=== PATIENT | male | born 1995 | race African-American/Black ===

== ENCOUNTER 2017-02-02 14:16 | Emergency (ER) | payer OTHER ==
[2017-02-02 15:56] VITALS: BP 108/76
[2017-02-02] MEDS ORDERED: BSS OPTH.SOL* BTL ONE (16:14)
[2017-02-02] MEDS ORDERED: Fluorescein Sodium TOPICAL* 1 MG TEST ONE (16:14)
[2017-02-02] MEDS ORDERED: Tetracaine 0.5% OPTH.SOL 4 ML* 1 DROP BTL ONE (16:14)
--- NOTE | 2017-02-02 16:24 | UC ---
Eye Complaint HPI - HPI Summary HPI Summary: left eye redness and D/C x 1 days irritated and itchy no contact use x 4 days no photophobia - History of Current Complaint Chief Complaint: UCEye Stated Complaint: EYE COMPLAINT Time Seen by Provider: 02/02/17 16:17 Hx Obtained From: Patient Onset/Duration: Gradual Onset, Lasting Days Timing: Constant Severity Initially: Mild Severity Currently: Mild Pain Intensity: 1 Pain Scale Used: 0-10 Numeric Location of Injury: Other - no injury Aggravating Factor(s): Nothing Associated Signs And Symptoms: Positive: Drainage (Purulent) - Risk Factors Penetrating Injury Risk Factor: Negative Globe Rupture Risk Factors: Negative Acute Glaucoma Risk Factors: Negative Optic Artery Occlusion Risk Factors: Negative - Allergies/Home Medications Allergies/Adverse Reactions: Allergies Allergy/AdvReac Type Severity Reaction Status Date / Time No Known Allergies Allergy Verified 02/02/17 15:56 PMH/Surg Hx/FS Hx/Imm Hx Previously Healthy: Yes - Surgical History Surgical History: Yes Surgery Procedure, Year, and Place: b/l jaw, left eye (age 11 Yrs) - Family History Known Family History: Negative: Cardiac Disease, Hypertension, Diabetes - Social History Alcohol Use: Weekly Alcohol Amount: 3-8 Substance Use Type: Marijuana Substance Use Comment - Amount & Last Used: 5 days ago Smoking Status (MU): Never Smoked Tobacco Review of Systems Constitutional: Negative Skin: Negative Eyes: Drainage, Eye Redness ENT: Negative Respiratory: Negative Cardiovascular: Negative Gastrointestinal: Negative Genitourinary: Negative Motor: Negative Neurovascular: Negative Musculoskeletal: Negative Neurological: Negative Psychological: Negative All Other Systems Reviewed And Are Negative: Yes Physical Exam Triage Information Reviewed: Yes Appearance: Well-Appearing, No Pain Distress, Well-Nourished Vital Signs: Initial Vital Signs Temp 99.1 F 02/02/17 15:44 Pulse 75 02/02/17 15:44 Resp 18 02/02/17 15:44 BP 108/76 02/02/17 15:44 Eyes: Positive: Conjunctiva Inflamed, Discharge - left, Other: - (-) fluorescein stain uptake ENT: Positive: Hearing grossly normal. Negative: Nasal congestion, Nasal drainage, Trismus, Muffled/hoarse voice Neck: Positive: Supple, Nontender, No Lymphadenopathy Respiratory: Positive: Lungs clear, Normal breath sounds, No respiratory distress Cardiovascular: Positive: RRR, No Murmur Musculoskeletal: Positive: ROM Intact, No Edema Neurological: Positive: Alert Psychological Exam: Normal Skin Exam: Normal Eye Complaint Course/Dx - Differential Dx/Diagnosis Provider Diagnoses: conjunctivitis left eye Discharge - Discharge Plan Condition: Stable Disposition: HOME Prescriptions: Polymyx/Trimethoprim OPTH* [Polytrim OPHTH*] 1 - 2 drop LEFT EYE QID #1 btl Patient Education Materials: Conjunctivitis (ED) Additional Instructions: no contact lens use for a week recheck in 4 days if not better I suggest you also use ZADiTOR eye drops (OTC)
== END 2017-02-02 16:26 | disposition home or self-care (01) ==
LOC: UCCORT 14:16
DX: H10.32 Unspecified acute conjunctivitis, left eye (principal)
CPT/HCPCS: 99202; A9270-GY; G0463

== ENCOUNTER 2019-07-19 11:46 | Emergency (ER) | payer OTHER ==
[2019-07-19 12:23] VITALS: BP 127/79
--- NOTE | 2019-07-19 13:19 | UC ---
Eye Complaint HPI - HPI Summary HPI Summary: INCREASING SWELLING R UPPER EYELID. IT BEGAN A CENTRAL BUMP ON THE EYELASH LINE. CONJUNCTIVA IS CLEAR. NO EYE PAIN OR VISUAL DISTURBANCE. - History of Current Complaint Chief Complaint: UCEye Stated Complaint: RIGHT EYE COMPLAINT Time Seen by Provider: 07/19/19 13:08 Hx Obtained From: Patient Onset/Duration: Gradual Onset Timing: Constant Pain Intensity: 4 Aggravating Factor(s): Nothing Associated Signs And Symptoms: Positive: Swelling - R upper lid.. Negative: Photophobia, Drainage (Clear), Drainage (Purulent), Vision Impairment Bilateral , Fever - Risk Factors Penetrating Injury Risk Factor: Negative Acute Glaucoma Risk Factors: Negative - Allergies/Home Medications Allergies/Adverse Reactions: Allergies Allergy/AdvReac Type Severity Reaction Status Date / Time No Known Allergies Allergy Verified 07/19/19 12:19 PMH/Surg Hx/FS Hx/Imm Hx Previously Healthy: Yes - Surgical History Surgical History: Yes Surgery Procedure, Year, and Place: b/l jaw, left eye (age 11 Yrs) - Family History Known Family History: Negative: Cardiac Disease, Hypertension, Diabetes - Social History Occupation: Student Alcohol Use: Occasionally Alcohol Amount: 3-8 Substance Use Type: Marijuana Substance Use Comment - Amount & Last Used: 5 days ago Smoking Status (MU): Current Some Day Smoker Amount Used/How Often: uses tobacco with marijuana occasionally Review of Systems All Other Systems Reviewed And Are Negative: No Constitutional: Negative: Fever, Chills Eyes: Negative: Blurred Vision, Diplopia, Drainage, Eye Redness, Photophobia ENT: Negative: Sore Throat, Ear Ache, Sinus Congestion Neurological: Negative: Headache Physical Exam Triage Information Reviewed: Yes Appearance: Well-Appearing Vital Signs: Initial Vital Signs Temp 98.7 F 07/19/19 12:19 Pulse 70 07/19/19 12:19 Resp 14 07/19/19 12:19 BP 127/79 07/19/19 12:19 Pulse Ox 98 07/19/19 12:19 Vital Signs Reviewed: Yes Eyes: Positive: Other: - No auricular adenopathy. R upper lid with mild swelling and slightly pink plus center of lash line just under lid with slight swelling and redness. Not hot or tender. No periorbital swelling or rash. Conjunctiva clear. PERRL, EOMI and painless, AC's clear. No FB's under lids. ENT: Positive: Pharynx normal, TMs normal. Negative: Nasal congestion, Nasal drainage Neck: Positive: Supple, Nontender, No Lymphadenopathy Neurological: Positive: Alert Psychological: Positive: Age Appropriate Behavior Skin Exam: Normal Eye Complaint Course/Dx - Differential Dx/Diagnosis Differential Diagnosis/HQI/PQRI: Other - c/w sty and possible early cellulitis but no concern for orbital or periorbital cellulitis. will tx with topical and oral antibiotic plus close f/u. pt agrees to go to ER for any worsening. Provider Diagnosis: Sty Discharge ED - Sign-Out/Discharge Documenting (check all that apply): Patient Departure All imaging exams completed and their final reports reviewed: No Studies - Discharge Plan Condition: Stable Disposition: HOME Prescriptions: DOXYcycline CAP(*) [DOXYcycline 100MG CAP(*)] 100 mg PO BID 7 Days #14 cap Erythromycin OPTH OINT* [Erythromycin 0.5% OPTH OINT*] 1 applic RIGHT EYE TID 7 Days #1 ophth.oint Patient Education Materials: Greyson (ED), Periorbital Cellulitis in Adults (ED) Referrals: [facility] [Outside] - 07/22/19 Additional Instructions: CALL TODAY FOR THE FOLLOW UP APPOINTMENT. GO TO THE ER FOR ANY WORSENING. - Billing Disposition and Condition Condition: STABLE Disposition: Home - Attestation Statements Provider Attestation: I was available for consult. This patient was seen by the MARYANA. The patient was not presented to, seen by, or examined by me. -Jerel
== END 2019-07-19 13:25 | disposition home or self-care (01) ==
LOC: UCCORT 11:46
DX: H00.011 Hordeolum externum right upper eyelid (principal); F17.290 Nicotine dependence, other tobacco product, uncomplicated
CPT/HCPCS: 99212; G0463

== ENCOUNTER 2019-09-12 12:07 | Day surgery (SDC) | payer OTHER ==
[~2019-09-12 12:07] MED LIST: Acetaminophen TAB* 325 MG PO ONE; Buffered Lidocaine 1% SYRIN* 1 ML/SYRINGE INTRADERM ONE; Famotidine IV* 10 MG/ML 2 ML (20 mg) IV ONE; Gabapentin CAP(*) 400 MG PO ONE; Lactated Ringers 1000 ML Bag* 1,000 ML IV SCH
[2019-09-12] MEDS ORDERED: ceFAZolin 2 GM in NS PREMIX(*) 2 GM/100 ML BAG IVPB ONE (12:12)
[2019-09-12] MEDS ORDERED: Acetaminophen TAB* 325 MG ONE (12:12)
[2019-09-12] MEDS ORDERED: Famotidine IV* 10 MG/ML 2 ML (20 mg) ONE (12:12)
[2019-09-12] MEDS ORDERED: Lidocaine 2% PF * 5 ML VIAL ONE ×2 (13:06→13:14)
[2019-09-12] MEDS ORDERED: Propofol* 10 MG/ML 20 ML BTL ONE ×2 (13:06→13:14)
[2019-09-12] MEDS ORDERED: Naloxone* 0.4 MG/ML 1 ML VIAL IV PRN (13:09)
[2019-09-12] MEDS ORDERED: Ondansetron INJ* 2 MG/ML VIAL IV PRN (13:09)
[2019-09-12] MEDS ORDERED: fentaNYL* 50 MCG/ML 2 ML VIAL (100 MCG VIAL) IV PRN (13:09)
[2019-09-12] MEDS ORDERED: Bupivacaine 0.25% SDV* 30 ML ONE (13:10)
[2019-09-12] MEDS ORDERED: fentaNYL* 50 MCG/ML 2 ML VIAL (100 MCG VIAL) ONE (13:14)
[2019-09-12] MEDS ORDERED: Dexamethasone IV* 4 MG/ML 1 ML (4 MG) ONE (13:35)
[2019-09-12] MEDS ORDERED: traMADol TAB* 50 MG ONE (14:55)
[2019-09-12] MEDS ORDERED: Ibuprofen TAB* 600 MG ONE (14:55)
[2019-09-12 16:22] VITALS: BP 143/88
--- NOTE | 2019-09-12 20:11 | OP ---
DATE OF OPERATION: 09/12/19 - [facility] DATE OF : [birth year]. SURGEON: Neel Purcell M.D. TOP EXECUTIVE: AMPARO Purcell. An assistant baseball coach was needed for the procedure to aid in positioning of the arm in retraction. ANESTHESIOLOGIST: Dr. Carrasco. ANESTHESIA: General. PRE-OP DIAGNOSIS: Left 5th metacarpal shaft displaced fracture. POST-OP DIAGNOSIS: Left 5th metacarpal shaft displaced fracture. OPERATIVE PROCEDURE: Open reduction and internal fixation of left 5th metacarpal shaft fracture. INDICATIONS: Dominique fracture is very displaced and we talked about the risks and benefits. He wanted to proceed with surgery. He understands the risks of neurovascular injury and tendon adhesions and stiffness as well as nonunion, malunion, infection, etc. ESTIMATED BLOOD LOSS: 2 mL. COMPLICATIONS: None. FINDINGS: See above and below. DESCRIPTION OF PROCEDURE: Mr. Gerard was seen in the preoperative holding area. The correct site, side and procedure were identified. We came back to the operating room. The arm was prepped and draped in the usual fashion and time-out was performed. The arm was exsanguinated with the Esmarch and the tourniquet was inflated to 225 mmHg. I spent about 5 minutes trying to get the fracture to reduce closed. It was obvious that it was not going to reduce closed. I therefore, went ahead and made a 2-cm incision just off the ulnar aspect of the extensor tendons on the dorsal ulnar aspect of the hand. Dissection was carried down. The tendons were retracted radially. The periosteum was released. The fracture was exposed. There was a large spike of bone that was preventing the reduction. I placed a Lowell elevator into the fracture and then I was able to lever that spike of bone over the other edge of the bone and then it popped into place and reduced nicely. I had already pre-positioned my guidewire for my 3.6 mm ExsoMed intramedullary screw in the distal fragment. Once I reduced the fracture, I went ahead and passed it down to the subchondral bone. I then measured and fixed a 45-mm screw. I then drilled over the wire and placed a 3.6 x 45 mm ExsoMed intramedullary screw in a standard fashion. I had selected this diameter screw based of preoperative measurement of the isthmus of the bone. It had a nice isthmic bite to it as it went in. At this point, everything was looking very good. The reduction was confirmed by looking at the bone and also on mini C-arm fluoroscopy, the length of the screw was confirmed. The MP joint had full flexion and extension after screw placement. The wound was irrigated out. Both wounds were closed with 4-0 nylon suture. Marcaine had already been infiltrated. The wound was dressed with Xeroform, 4x4s, sterile Webril, and the ulnar gutter splint with the hand in the intrinsic plus position was applied. He was taken to the recovery room in stable condition. [id number]/CPS #: [id number] MTDD
== END 2019-09-12 15:44 | disposition home or self-care (01) ==
LOC: OREAST 12:07
PROVIDERS: ATTEND Orthopaedic Surgery Hand Surgery
DX: S62.327A Displaced fracture of shaft of fifth metacarpal bone, left hand, initial encounter for closed fracture (principal); W22.8XXA Striking against or struck by other objects, initial encounter
CPT/HCPCS: 76000; A9270-GY; C1713; J0690; J1100; J2704; J3010; J3490